=== PATIENT | male | born 2000 | race Caucasian/White ===

== ENCOUNTER 2020-12-22 18:01 | Emergency (ER) | payer OTHER, SELFPAY ==
[2020-12-22 18:18] VITALS: BP 147/64; PULSE 66; RESP 16; TEMP 37.3; O2SAT 99
[2020-12-22 18:36] VITALS: BP 147/64; PULSE 66; RESP 16; TEMP 37.3; O2SAT 99
--- NOTE | 2020-12-22 18:37 | ED.GENADULT ---
HPI - General Adult General Chief complaint: Nausea/Vomiting/Diarrhea Stated complaint: COVID Symptoms Time Seen by Provider: 12/22/20 18:35 Source: patient and RN notes reviewed Mode of arrival: ambulatory Limitations: no limitations History of Present Illness HPI narrative: 20-year-old male presents with complaints of fever, body aches, diarrhea, and, headaches (not the worst of his life) for 1 day. Brooke reports symptoms are improving except nausea and body aches. Ibuprofen (last today at 15:00) and Tylenol (last today at noon) with some relief. Denies cough and chest congestion. No rhinorrhea and nasal congestion. Exacerbating factors consist of eating and drinking. High fevers, highest 101F, orally with intermittent chills and sweats. Nausea, vomiting, and diarrhea. Last episodes of emesis on 12/21/2020, has 2 episodes without blood. Diarrhea 1 time today and 2 times on 12/21/2020 all episodes without blood. No abdominal pain. Denies chest pain, coughing up blood, jaw pain, dental pain, facial pain, and rash. The patient reports he have not been diagnosed with COVID-19. The patient reports he is not waiting for the results of a COVID-19 lab test. The patient reports he do not have weakness, myalgia, or fatigue. The patient reports he do not have a new or worsening cough. The patient reports he do not have any loss of smell or taste or . Denies recent traveling. Denies concerns for COVID-19 or exposures been home with limited outdoor exposure except for essential household needs, work, and return home. At this time, patient is not suspected of having COVID-19. Some parts of this dictation were generated by voice recognition software and may contain typographical and/or grammatical inaccuracies. Related Data Home Medications Medication Instructions Recorded Confirmed methadone 240 mg PO DAILY 12/22/20 12/28/20 Allergies Allergy/AdvReac Type Severity Reaction Status Date / Time No Known Allergies Allergy Verified 12/28/20 18:32 Review of Systems Review of Systems: Narrative: CONSTITUTIONAL: Complains of fever, chills, sweats, body aches. EYES: Denies visual changes, redness, discharge. ENT: Denies rhinorrhea, congestion, sore throat, otalgia. CARDIOVASCULAR: Denies chest pain, palpitations, edema. RESPIRATORY: Denies wheezing, dyspnea, cough. GASTROINTESTINAL: Denies abdominal pain. Complains of nausea, vomiting, diarrhea. GENITOURINARY: Denies dysuria, hematuria, abnormal discharge. SKIN: Denies rash or itching. MUSCULOSKELETAL: Denies acute back pain, joint pain, myalgia. NEUROLOGIC: Denies numbness or focal weakness. PSYCHIATRIC: Denies anxiety or depression. Complains of intermittent FREED. All systems reviewed & are unremarkable except as noted in HPI and below PMFSH Past Medical History Medical History Hepatitis C Methadone dependence Polysubstance abuse Surgical History Surgical History No significant past surgical history Family History Family History (Updated 12/29/20 @ 13:24 by YUE Butts) Father Diabetes mellitus Mother Alive and well Social History Social History (Updated 12/29/20 @ 13:27 by YUE Butts) Smoking packs per day: 0.5 Smoking cigarettes per day: 10.0 Years smoked: 10 Smoking pack-years: 5.00 Smoking status: Current every day smoker Tobacco type: cigarettes Second hand tobacco smoke exposure: Yes Alcohol intake: former Substance use: former Substance use type: heroin Last use: 6 months ago currently on methadone treatement Living arrangements: with family Occupation/Education: occupation Gender identity (if verbalized by the patient): Male Comments At time of signature, agree with nurse past medical, surgical, social, and family history. There is no relevant family history pertinent to the pre
[2020-12-22 19:06] VITALS: BP 124/63
== END 2020-12-22 19:06 | disposition home or self-care (01) ==
PROVIDERS: Emergency Provider Nurse Practitioner Family
DX: K52.9 Noninfective gastroenteritis and colitis, unspecified (principal); Z20.822 Contact with and (suspected) exposure to COVID-19; Z86.19 Personal history of other infectious and parasitic diseases
CPT/HCPCS: 87426; 87804; 99213; C9803; G0463

== ENCOUNTER 2020-12-28 17:51 | Emergency (ER) | payer OTHER, SELFPAY ==
--- NOTE | 2020-12-28 17:56 | ED.GENADULT ---
HPI - General Adult General Chief complaint: Wound/Laceration Stated complaint: Wound/Laceration Time Seen by Provider: 12/28/20 17:56 Source: patient Mode of arrival: ambulatory Limitations: no limitations History of Present Illness HPI narrative: 20-year-old male patient presents to the [facility] with complaints of a right thumb laceration. Patient states he was washing dishes this evening and a glass broke lacerating his left thumb. Patient states his last tetanus shot was in 2019. Patient denies any numbness or tingling. Related Data Home Medications Medication Instructions Recorded Confirmed methadone 240 mg PO DAILY 12/22/20 12/22/20 Allergies Allergy/AdvReac Type Severity Reaction Status Date / Time No Known Allergies Allergy Verified 12/28/20 18:32 Review of Systems Review of Systems: Narrative: CONSTITUTIONAL: Denies fever, chills, or sweats. EYES: Denies visual changes, redness, or discharge. ENT: Denies rhinorrhea, congestion, sore throat, or otalgia. CARDIOVASCULAR: Denies chest pain, palpitations, or edema. RESPIRATORY: Denies cough or dyspnea. GASTROINTESTINAL: Denies abdominal pain, nausea, vomiting, or diarrhea. GENITOURINARY: Denies dysuria or hematuria. SKIN: Denies rash or itching. Positive laceration to right thumb MUSCULOSKELETAL: Denies back pain, joint pain, or myalgia. NEUROLOGIC: Denies headache, numbness, or weakness. PSYCHIATRIC: Denies anxiety or depression. [facility] Past Medical History Medical History (Updated 12/28/20 @ 18:44 by YUE He) Hepatitis C Methadone dependence Polysubstance abuse Comments At the time of my signature I agree with nursing past medical history, surgical, social, and family history. There is no relevant family history pertinent to the presenting complaint. Exam Narrative: Exam Narrative: GENERAL: Well-appearing, well-nourished, and in no acute distress. HEAD: Normocephalic, atraumatic. EYES: PERRLA and EOMI. ENT: Nares clear, no rhinorrhea or epistaxis. Mucous membranes moist. NECK: Supple. No lymphadenopathy CHEST: Clear to auscultation. No respiratory distress. HEART: Regular rate and rhythm. No murmur heard. Normal peripheral pulses. ABDOMEN: Soft, nontender, nondistended, normal active bowel sounds. EXTREMITIES: Normal range of motion. No edema. SKIN: Warm, dry, no rash. Patient has approximately 2 cm laceration noted to the base of the right thumb on the dorsal side. There is no active bleeding at this time. Patient has excellent range of motion to the thumb and able to do a thumbs up, okay sign and move the fingers well. No suspected tendon involvement. No obvious foreign body NEURO: No focal deficits. Alert and oriented x3. Course Vital Signs Vital signs: Vital Signs Temperature 37.1 C 12/28/20 18:10 Pulse Rate 101 H 12/28/20 18:10 Respiratory Rate 18 12/28/20 18:10 Blood Pressure 151/66 H 12/28/20 18:10 Pulse Oximetry 98 12/28/20 18:10 Temperature 37.1 C 12/28/20 18:35 Pulse Rate 101 H 12/28/20 18:35 Respiratory Rate 18 12/28/20 18:35 Blood Pressure 151/66 H 12/28/20 18:35 Pulse Oximetry 98 12/28/20 18:35 Vital signs reviewed. The patient has been informed that they may have pre-hypertension or Hypertension based on a BP reading in the department. I recommend that the patient call the primary care provider listed on their discharge instructions or a physician of their choice this week to arrange follow up for further evaluation of possible pre-hypertension or Hypertension Procedures Laceration Laceration 1: Date: 12/28/20 Time: 18:30 Site: hand (Thumb) Side (If applicable): right Size (cm): 2 Description: linear Local Anesthetic: lidocaine 1% Amount of anesthesia used (mL): 4 Pre-repair: wound explored and irrigated ====== Skin Level ====== Skin layer closed with: vicryl Size (cm): 5-0 Number of sutu
[2020-12-28 18:10] VITALS: BP 151/66; PULSE 101; RESP 18; TEMP 37.1; O2SAT 98
[2020-12-28 18:35] VITALS: BP 151/66; PULSE 101; RESP 18; TEMP 37.1; O2SAT 98
== END 2020-12-28 18:46 | disposition home or self-care (01) ==
PROVIDERS: Emergency Provider Nurse Practitioner Family
DX: S61.011A Laceration without foreign body of right thumb without damage to nail, initial encounter (principal); W25.XXXA Contact with sharp glass, initial encounter; Y93.G1 Activity, food preparation and clean up
CPT/HCPCS: 12001; 99212; G0463

== ENCOUNTER 2021-02-16 17:35 | Emergency (ER) | payer OTHER, SELFPAY | END 2021-02-16 17:46 | disposition left against medical advice (07) | LOC: EXPBETH 17:40 | PROVIDERS: Emergency Provider Nurse Practitioner Family | DX: Z53.21 Procedure and treatment not carried out due to patient leaving prior to being seen by health care provider (principal) | CPT/HCPCS: 99199 ==

== ENCOUNTER 2021-10-11 12:36 | Emergency (ER) | payer OTHER, SELFPAY ==
[2021-10-11 12:41] VITALS: BP 105/51; PULSE 68; RESP 16; TEMP 36.4; O2SAT 100
--- NOTE | 2021-10-11 13:15 | ED.DENTAL ---
HPI - Dental/Oral General Chief complaint: Dental/Oral Stated complaint: Toothache Time Seen by Provider: 10/11/21 13:15 Source: patient Mode of arrival: ambulatory Limitations: no limitations History of Present Illness HPI Narrative: Brooke Long is a 20 yo with a PMH of Hepatitis C, anxiety, opiate addiction, is here for dental pain and facial swelling. He has had swelling for 3 days and has a dental appointment on 10/19. His dentition is very poor and he has left-sided facial swelling Related Data Home Medications Medication Instructions Recorded Confirmed methadone 240 mg PO DAILY 12/22/20 10/11/21 Allergies Allergy/AdvReac Type Severity Reaction Status Date / Time No Known Allergies Allergy Verified 10/11/21 12:48 Review of Systems Review of Systems: CONSTITUTIONAL: Denies fever, chills, sweats. EYES: Denies visual changes, redness, discharge. ENT: Denies rhinorrhea, congestion, sore throat, otalgia. CARDIOVASCULAR: Denies chest pain, palpitations, edema. RESPIRATORY: Denies dyspnea, wheezing, cough GASTROINTESTINAL: Denies abdominal pain, nausea, vomiting, diarrhea. GENITOURINARY: Denies dysuria, hematuria, abnormal discharge SKIN: Denies rash or itching. NEUROLOGIC: Denies numbness, or focal weakness. PSYCHIATRIC: Denies anxiety or depression. Left-sided facial swelling due to upper tooth fracture that started about 2 to 3 days ago [facility] Past Medical History Medical History Hepatitis C Methadone dependence Polysubstance abuse Surgical History Surgical History No significant past surgical history Family History Family History Father Diabetes mellitus Mother Alive and well Social History Social History Smoking packs per day: 0.5 Smoking cigarettes per day: 10.0 Years smoked: 10 Smoking pack-years: 5.00 Smoking status: Current every day smoker Tobacco type: cigarettes Second hand tobacco smoke exposure: Yes Alcohol intake: former Substance use: former Substance use type: heroin Last use: 6 months ago currently on methadone treatement Gender identity (if verbalized by the patient): Male Comments At time of signature, I agree with nursing past medical, surgical, social and family history. There is no relevant family history pertinent to the presenting complaint. Exam Narrative: GENERAL: This is a well-nourished, well-developed patient, in mild distress. Patient is unkempt HEAD: normocephalic, atraumatic. EYES: Sclera clear/white. Vision is grossly intact. EARS: External ears normal, auditory canals clear and without drainage, TMs normal without perforation. Hearing grossly intact. NOSE: External nose normal without nasal discharge, nares without redness, no rhinorrhea. Mouth-poor dentition with multiple teeth missing or fractured tooth of concern is left upper #10 with swelling and redness of the gum, left cheek is mildly edematous THROAT: Mucous membranes moist, NECK: Neck supple, CARDIOVASCULAR: Regular rate and rhythm without murmurs, gallops, or rubs. RESPIRATORY: Clear to auscultation. Breath sounds equal bilaterally. No wheezes, rales, or rhonchi. GASTROINTESTINAL: Abdomen soft, non-tender, SKIN: warm, intact with no suspicious lesions or rash, good texture and turgor. NEURO: awake, alert, and oriented to person, place and time. There were no obvious focal neurologic abnormalities. Steady gait EXTREMITIES: Normal range of motion. BACK: Nontender without deformity Course Course Emergency [facility]: [facility] and left facial swelling Started on penicillin 500 mg 1 bid times daily x10 days and Medrol dose pack, Naprosyn 500 mg twice daily. Discussed rotating Naprosyn and Tylenol since patient is on high-dose
== END 2021-10-11 13:33 | disposition home or self-care (01) ==
PROVIDERS: Emergency Provider Nurse Practitioner
DX: K04.7 Periapical abscess without sinus (principal); F17.210 Nicotine dependence, cigarettes, uncomplicated; Z86.19 Personal history of other infectious and parasitic diseases
CPT/HCPCS: 99213; G0463

== ENCOUNTER 2021-12-03 08:41 | Emergency (ER) | payer OTHER, SELFPAY ==
--- NOTE | 2021-12-03 08:45 | ED.DENTAL ---
HPI - Dental/Oral General Chief complaint: Dental/Oral Stated complaint: Abcess Tooth cough Time Seen by Provider: 12/03/21 08:46 Source: patient and RN notes reviewed History of Present Illness HPI Narrative: Patient is a 21-year-old male who presents the urgent care with complaints of left upper dental pain. Patient states that it has been coming and going for the last couple weeks and patient was seen here in September for the same issue. Patient states he does have a dental appointment in 2 weeks. States that the pain started back up approximately 2 to 3 days ago and he is now having mild swelling. Patient has been using ibuprofen and methadone prescription for pain. Denies any fever, chills, nausea or vomiting. No other acute complaints. No acute distress noted. Patient read the plan of care. Some parts of this dictation were generated by voice recognition software and may contain typographical and/or grammatical inaccuracies. Related Data Home Medications Medication Instructions Recorded Confirmed methadone 240 mg PO DAILY 12/22/20 12/03/21 Allergies Allergy/AdvReac Type Severity Reaction Status Date / Time No Known Allergies Allergy Verified 10/11/21 12:48 Review of Systems Review of Systems: CONSTITUTIONAL: Denies fever, chills, or sweats. EYES: Denies visual changes, redness, or discharge. ENT: Denies rhinorrhea, congestion, sore throat, or otalgia. Reports of left upper dental pain CARDIOVASCULAR: Denies chest pain, palpitations, or edema. RESPIRATORY: Denies cough or dyspnea. GASTROINTESTINAL: Denies abdominal pain, nausea, vomiting, or diarrhea. GENITOURINARY: Denies dysuria or hematuria. SKIN: Denies rash or itching. MUSCULOSKELETAL: Denies back pain, joint pain, or myalgia. NEUROLOGIC: Denies headache, numbness, or weakness. All other systems reviewed are negative, except as documented in HPI. [facility] Past Medical History Medical History Hepatitis C Methadone dependence Polysubstance abuse Surgical History Surgical History No significant past surgical history Family History Family History Father Diabetes mellitus Mother Alive and well Social History Social History Smoking packs per day: 0.5 Smoking cigarettes per day: 10.0 Years smoked: 10 Smoking pack-years: 5.00 Smoking status: Current every day smoker Tobacco type: cigarettes Second hand tobacco smoke exposure: Yes Alcohol intake: former Substance use: former Substance use type: heroin Last use: 6 months ago currently on methadone treatement Gender identity (if verbalized by the patient): Male Comments At the time of my signature, I reviewed and agree with the nursing past medical, surgical, social, and family history. There is no relevant family history pertinent to the patient complaint. Exam Narrative: GENERAL: This is a well-nourished, well-developed patient, in no apparent distress. HEAD: normocephalic, atraumatic. EYES: PERRL. Sclera clear/white. Vision is grossly intact. EARS: External ears normal, auditory canals clear and without drainage, TMs normal without perforation. Hearing grossly intact. NOSE: External nose normal with no obvious nasal discharge, nares without redness, no rhinorrhea. THROAT: Mucous membranes moist, posterior pharynx clear. Moderate postnasal drainage DENTAL: Mild to moderate edema and erythema noted to the left upper quadrant with avulsed dentition and notable trench mouth throughout NECK: Neck supple CARDIOVASCULAR: Regular rate and rhythm without murmurs, gallops, or rubs. RESPIRATORY: Clear to auscultation. Breath sounds equal bilaterally. No wheezes, rales, or rhonchi. SKIN: warm, intact with no suspicious lesions or rash, good texture and turgor. NEURO:
[2021-12-03 08:50] VITALS: BP 121/84; PULSE 101; RESP 16; TEMP 37; O2SAT 98
== END 2021-12-03 09:01 | disposition home or self-care (01) ==
PROVIDERS: Emergency Provider Nurse Practitioner Family
DX: K04.7 Periapical abscess without sinus (principal); F17.210 Nicotine dependence, cigarettes, uncomplicated; Z86.19 Personal history of other infectious and parasitic diseases
CPT/HCPCS: 99213; G0463

== ENCOUNTER 2022-04-24 14:23 | Emergency (ER) | payer OTHER, SELFPAY ==
[2022-04-24 14:30] VITALS: BP 131/74; PULSE 125; RESP 16; TEMP 37; O2SAT 98
--- NOTE | 2022-04-24 14:44 | ED.DENTAL ---
HPI - Dental/Oral General Chief complaint: Dental/Oral Stated complaint: Toothache/Facial Swelling Time Seen by Provider: 04/24/22 14:45 Source: patient Mode of arrival: ambulatory Limitations: no limitations History of Present Illness HPI Narrative: 21-year-old male with history of IVDA and Hep C, presented for complaint of right-sided facial swelling, redness, and pain worsening over the past few days. He endorses pain to the right lower teeth and face, with a history of poor dentition. He believes that the dental pain started and then he noticed the wound on his face. States it is actively draining. IV heroin and Fentanyl use. Related Data Allergies Allergy/AdvReac Type Severity Reaction Status Date / Time No Known Allergies Allergy Verified 04/24/22 14:37 Review of Systems Review of Systems: CONSTITUTIONAL: Denies body aches, fever, chills, or sweats. ENT: reports dental pain CARDIOVASCULAR: Denies chest pain, palpitations, or edema. RESPIRATORY: Denies cough or dyspnea. SKIN: reports facial wound MUSCULOSKELETAL: Denies back pain, joint pain, or myalgia. NEUROLOGIC: Denies headache, numbness, tingling, or weakness. . [facility] Past Medical History Medical History Hepatitis C Methadone dependence Polysubstance abuse Surgical History Surgical History No significant past surgical history Family History Family History Father Diabetes mellitus Mother Alive and well Social History Social History Smoking packs per day: 0.5 Smoking cigarettes per day: 10.0 Years smoked: 10 Smoking pack-years: 5.00 Smoking status: Current every day smoker Tobacco type: cigarettes Second hand tobacco smoke exposure: Yes Alcohol intake: former Substance use: former Substance use type: heroin Last use: 6 months ago currently on methadone treatement Gender identity (if verbalized by the patient): Male Comments At time of signature, I have reviewed and agree with nursing past medical, surgical, social and family history unless otherwise noted. Please see nursing chart for further information. There is no relevant family history pertinent to the presenting complaint Exam Narrative: GENERAL: Thin, appears older than stated age, unkempt. EYES: conjunctivae clear, and EOMI. ENT: Mucous membranes moist. Poor dentition multiple caries and broken teeth, no apparent abscess at the right lower gum line CHEST: Clear to auscultation. HEART: Regular rate and rhythm. SKIN: Right lower cheek with approx [id number] diameter open abscess draining purulent discharge, approx 0.5cm deep with surrounding induration of approx 3cm diameter; Track drew to Bilateral arms NEURO: Alert and oriented x3. PSYCH: flat affect Course Course Emergency Course: Patient is aware of diagnosis, understands and agrees to treatment plan. Anticipatory guidance given. Patient agrees to follow-up as directed and is aware of reasons to seek care at the emergency department. Portions of this record may have been created with voice recognition software Level of Care: Express Care Visit Vital Signs Vital signs: Vital Signs Temperature 98.6 F 04/24/22 14:30 Pulse Rate 125 H 04/24/22 14:30 Respiratory Rate 16 04/24/22 14:30 Blood Pressure 131/74 04/24/22 14:30 Pulse Oximetry 98 04/24/22 14:30 Oxygen Delivery Room Air 04/24/22 14:30 Temperature 98.6 F 04/24/22 14:30 Pulse Rate 125 H 04/24/22 14:30 Respiratory Rate 16 04/24/22 14:30 Blood Pressure 131/74 04/24/22 14:30 Pulse Oximetry 98 04/24/22 14:30 Oxygen Delivery Room Air 04/24/22 14:30 Reviewed Procedures Other Procedure Procedure 1: Other Procedure: Right facial wound cleansed with [employer] a
--- NOTE | 2022-04-24 14:51 | PC.NURSE ---
REDNESS SWELLING TO RIGHT CHEEK WITH LIGHT BROWN COLORED DRAINAGE AND SKIN TO THE RIGHT CHEEK NEAR THE MOUTH. PT REPORTS I STARTED ON MONDAY WITH INFECTION TO MY LOWER RIGHT TOOTH AND NOW I HAVE A HOLE IN MY FACE THAT IS DRAINING AND INFECTED. DENIES SOB OR DIFFICULTY SWALLOWING. DENIES FEVERS.
== END 2022-04-24 15:40 | disposition home or self-care (01) ==
PROVIDERS: Emergency Provider Nurse Practitioner Family
DX: L02.01 Cutaneous abscess of face (principal); L03.221 Cellulitis of neck; F17.210 Nicotine dependence, cigarettes, uncomplicated
CPT/HCPCS: 99213; G0463